=== PATIENT | male | born 1930 | race Caucasian/White ===

== ENCOUNTER 2017-09-22 11:07 | Emergency (ER) | payer MEDICARE, OTHER ==
[~2017-09-22] VITALS: Ht 180.3 cm; Wt 78.5 kg
[~2017-09-22 11:07] MED LIST: ASPI325; ASPI325 PO; ATOR20 PO; ATOR40TA; ATOR40TA PO; CHOL10002 PO; CINNAMON PO; DUTA.5 PO; ESCI20; ESCI20 PO; GLIM4; GLIP2.5ER PO; HYDACE5 PO; INS70/30I SC; MECL25; MULVITMINF; MULVITMINF PO; NITR100 PO; ONGLYZA; PIOG45 PO; QUET100 PO; RXHYDACE PO; TAMS.4ER PO
[2017-09-22 12:03] LABS: BASOPHILS ABSOLUTE AUTO 0.01 K/mm3 (0.00-0.23); BASOPHILS PERCENT AUTO 0 % (0-2); EOSINOPHILS ABSOLUTE AUTO 0.02 K/mm3 (0.00-0.68); EOSINOPHILS PERCENT AUTO 0 % (0-6); Hematocrit 45.3 % (37.0-53.0); Hemoglobin 15.1 g/dL (13.5-17.5); IMMATURE GRAN ABSOLUTE AUTO 0.03 K/mm3 (0.00-0.10); IMMATURE GRAN PERCENT AUTO 0 % (0-1); LYMPHOCYTES ABSOLUTE AUTO 1.33 K/mm3 (0.84-5.20); LYMPHOCYTES PERCENT AUTO 14 % (21-46); MONOCYTES ABSOLUTE AUTO 0.81 K/mm3 (0.16-1.47); MONOCYTES PERCENT AUTO 9 % (4-13); Mean Corpuscular HGB 29.5 pg (26.0-34.0); Mean Corpuscular HGB Conc 33.3 g/dL (31.5-36.5); Mean Corpuscular Volume 89 fL (80-100); Mean Platelet Volume 10.1 fL (9.1-12.4); NEUTROPHILS ABSOLUTE AUTO 7.09 K/mm3 (1.96-9.15); NEUTROPHILS PERCENT AUTO 76 % (41-73); Platelet Count 258 K/mm3 (150-400); RDW Coefficient Variation 13.1 % (11.7-14.2); RDW Standard Deviation 42.4 fL (35.1-46.3); Red Blood Cell Count 5.12 M/mm3 (4.30-5.90); White Blood Cell Count 9.29 K/mm3 (4.00-11.30)
[2017-09-22 12:29] LABS: Alanine Aminotransfer (ALT/SGP 22 U/L (12-78); Albumin, Blood 3.5 g/dL (3.4-5.0); Alk Phos 69 U/L (50-136); Anion Gap 10 mmol/L (6-16); Aspartate Aminotrans (AST/SGOT 21 U/L (12-37); Beta-hydroxybutyrate 9.5 mg/dL (0.2-2.8); Bilirubin, Total 0.7 mg/dL (0.1-1.0); Blood Urea Nitrogen 20 mg/dL (8-24); Bun/Creatinine Ratio 18.2 (12.0-20.0); CO2, Blood 25 mmol/L (21-32); Calcium, Blood 8.8 mg/dL (8.5-10.1); Chloride, Blood 101 mmol/L (98-108); Globulin, Blood 3.5 g/dL (2.2-4.0); Glomerular Filtration Rate >60 (60-); Glucose, Blood 467 mg/dL (70-99); Potassium, Blood 3.5 mmol/L (3.5-5.5); Sodium, Blood 136 mmol/L (136-145)
[2017-09-22 14:34] LABS: Base Excess Venous 1.1 mmol/L; Bicarbonate Venous 24.3 mmol/L (24.0-30.0); PCO2 Venous 46.3 mmHg (38-42); PO2 Venous 38.8 mmHg (38-42); pH Blood Venous 7.37 (7.34-7.37)
[2018-06-21] MEDS ORDERED: Hair, Skin & N1 EACH PO (16:56)
[2018-06-21] MEDS ORDERED: ATOR40TA PO (16:56)
[2018-06-21] MEDS ORDERED: ERGO400 PO (16:56)
[2018-06-21] MEDS ORDERED: QUET25 (16:57)
[2018-06-21] MEDS ORDERED: ASPI81CH PO (16:57)
[2018-06-21] MEDS ORDERED: SAXA2.5T PO (16:57)
[2018-06-21] MEDS ORDERED: SERT50 PO (16:58)
[2018-06-21] MEDS ORDERED: TAMS.4ER PO (16:58)
[2018-06-21] MEDS ORDERED: Novolog100 UNIT/1 SC (16:59)
[2018-06-21] MEDS ORDERED: Humalog100 UNIT/1 SC (17:00)
[2018-06-21] MEDS ORDERED: QUET25 PO (17:01)
[2018-06-21] MEDS ORDERED: FLUT1DIS5 INH (17:01)
[2018-06-21] MEDS ORDERED: TADA10TA PO (17:03)
[2018-06-21] MEDS ORDERED: MYRBETRIQ50 MG PO (17:03)
[2018-06-21] MEDS ORDERED: ALBU90OI INH (17:07)
[2018-06-21] MEDS ORDERED: INCRUSE ELLI62.5 MCG INH (17:07)
[2018-07-20] MEDS ORDERED: ATOR20 PO (09:26)
[2018-07-28] MEDS ORDERED: TAMS.4ER PO (14:55)
[2018-07-28] MEDS ORDERED: ACET325 PO (14:58)
[2018-07-28] MEDS ORDERED: INSDET100 SC (15:04)
== END 2017-09-22 16:32 | disposition home or self-care (01) ==
LOC: ER 11:07
PROVIDERS: Emergency Medicine
DX: E11.65 Type 2 diabetes mellitus with hyperglycemia (principal); Z91.14 Patient's other noncompliance with medication regimen; Z88.8 Allergy status to other drugs, medicaments and biological substances; Z79.899 Other long term (current) drug therapy; Z79.84 Long term (current) use of oral hypoglycemic drugs; Z79.4 Long term (current) use of insulin; Z87.891 Personal history of nicotine dependence
CPT/HCPCS: 36415; 80053; 82010; 82803; 82947; 85025; 93005; 93010; 96360; 99283; J1815; J7030

== ENCOUNTER → 2018-09-30 | Outpatient (CLI) | payer MEDICARE, OTHER ==
[~2018-09-30] MED LIST changes: +ACET325 PO; +ALBU90OI INH; +ASPI81CH PO; +ERGO400 PO; +FLUT1DIS5 INH; +Hair, Skin & N1 EACH PO; +Humalog100 UNIT/1 SC; +INCRUSE ELLI62.5 MCG INH; +INSDET100 SC; +MYRBETRIQ50 MG PO; +Novolog100 UNIT/1 SC; +QUET25; +QUET25 PO; +SAXA2.5T PO; +SERT50 PO; +TADA10TA PO
== END | disposition home or self-care (01) ==
LOC: LAB EV 18:57 → LAB SHORT 18:57
DX: H60.11 Cellulitis of right external ear (principal)
CPT/HCPCS: 87070; 87205

== ENCOUNTER → 2020-12-16 | Outpatient (CLI) | payer MEDICARE, OTHER ==
[~2020-12-16] MED LIST changes: +Aspir 8181 MG PO; +FLUT1DIS2; +HUMALOG KW100 UNIT/1; +INCRUSE ELLI62.5 MC1; +MYRBETRIQ25 MG PO; +NOVOLOG MI100 UNIT/2 SC; +SINEMET 25-1001 EAC1; +TIOT18 INH
== END ==
LOC: LAB SHORT 16:45 → LAB 16:45
DX: L02.11 Cutaneous abscess of neck (principal)
CPT/HCPCS: 87070; 87075; 87076; 87077; 87186; 87205

== ENCOUNTER 2022-01-02 16:40 | Emergency (ER) | payer MEDICARE, OTHER ==
[~2022-01-02] VITALS: Ht 180.3 cm; Wt 65.8 kg
[2022-01-02] MEDS ORDERED: HYDR1TAB94 PO (20:07)
== END 2022-01-02 20:25 | disposition home or self-care (01) ==
LOC: ER 16:40
DX: S22.42XA Multiple fractures of ribs, left side, initial encounter for closed fracture (principal); E11.9 Type 2 diabetes mellitus without complications; Z79.82 Long term (current) use of aspirin; Z79.899 Other long term (current) drug therapy; Z79.4 Long term (current) use of insulin; Z87.891 Personal history of nicotine dependence; W19.XXXA Unspecified fall, initial encounter
CPT/HCPCS: 70450; 71101; 72125; 99284-25; A9270